=== PATIENT | female | born 1980 | race Caucasian/White ===

== ENCOUNTER 2019-01-26 05:05 | Inpatient (IN) | payer BC ==
[~2019-01-26] VITALS: Ht 165.1 cm; Wt 73.7 kg
[2019-01-26] MEDS ORDERED: SODIUM CHLORIDE 0.9% 1,000 ML IV ONE (06:59)
[2019-01-26] MEDS ORDERED: ONDANSETRON HCL 4 MG/2 ML VIAL IV ONE (07:00)
[2019-01-26] MEDS ORDERED: MORPHINE SULFATE 4 MG/ML SYR/VIAL IV ONE ×2 (07:00→09:45)
[2019-01-26] MEDS ORDERED: LIDOCAINE 1% (LOCAL ANESTH.) PF 5ml SDV ID ONE (07:30)
[2019-01-26] MEDS ORDERED: InsuLIN REG 1unit/0.01ml Soln (100units/ml) IV ONE ×2 (07:30→13:45)
[2019-01-26 07:31] LABS: Basophils # (auto) 0 uL; Basophils % (auto) 0.4 % (0.0-2.0); Eosinophils # (auto) 0.2 uL; Eosinophils % (auto) 1.8 % (0.0-7.0); Hematocrit 32.4 % (36.0-46.0); Hemoglobin 10.5 g/dL (12.2-16.2); Lymphocytes # (auto) 1.3 uL; Lymphocytes % (auto) 12.1 % (10.0-50.0); Mean Corpuscular Hemoglobin 28.1 pg (28.0-32.0); Mean Corpuscular Hgb Conc. 32.3 g/dL (32.0-36.0); Mean Corpuscular Volume 87.1 fL (80.0-100.0); Monocytes # (auto) 0.7 uL; Monocytes % (auto) 6.8 % (0.0-12.0); Neutrophils # (auto) 8.3 uL; Neutrophils % (auto) 78.9 % (37.0-80.0); Platelet Count (auto) 334 10^3/uL (140-450); Red Blood Cells 3.72 10^6/uL (4.0-5.20); Red Cell Distribution Width 14.3 % (11.8-14.3); White Blood Cell 10.5 10^3/uL (4.4-10.8)
[2019-01-26 07:49] LABS: Potassium 4.4 mmol/L (3.5-5.1)
[2019-01-26 07:53] LABS: Albumin 3.1 g/dL (3.4-5.0); BUN/Creatinine Ratio 16.7; INR 0.87 (0.9-1.15); Magnesium 2.2 mg/dL (1.6-2.6); Partial Thromboplastin Time 27.3 sec (23.78-33.04); Prothrombin Time 9.4 sec (9.27-12.13)
[2019-01-26 08:07] LABS: Bilirubin, Total 0.3 mg/dL (0.2-1.0); Total Protein 7.6 g/dL (6.4-8.2)
[2019-01-26] MEDS ORDERED: LEVOFLOXACIN 500MG 100 ML IV ONE (09:30)
[2019-01-26] MEDS ORDERED: MORPHINE SULF INJ 2 MG/ML SYRINGE 1ML IV PRN (09:30)
[2019-01-26] MEDS ORDERED: DEXTROSE (50%) 50ML SYRG IV PRN ×2 (09:30→13:45)
[2019-01-26] MEDS ORDERED: TEMAZEPAM 15 MG CAP PO PRN (09:30)
[2019-01-26] MEDS ORDERED: traMADol HCL 50 MG TAB PO PRN (09:30)
[2019-01-26] MEDS ORDERED: NITROGLYCERIN 0.4 MG SL TAB SL PRN (09:30)
[2019-01-26] MEDS ORDERED: ACETAMINOPHEN 500 MG TAB PO PRN (09:30)
[2019-01-26] MEDS ORDERED: KETOROLAC TROMETH 30 MG/ML 1ML VIAL IV PRN (09:30)
[2019-01-26 09:54] LABS: Amylase 35 U/L (25-115); Lipase 256 U/L (73-393)
[2019-01-26] MEDS: FAMOTIDINE 20 MG TAB PO SCH ×2 (09:56→22:25)
[2019-01-26] MEDS: PROMETHAZINE HCL 25 MG/ML 1ML IV PRN ×2 (09:56→14:26)
[2019-01-26] MEDS ORDERED: LEVOFLOXACIN 500MG 100 ML IV SCH (10:00)
[2019-01-26] MEDS: INSULIN LANTUS (GLARGINE) 1 /0.01ml (100units/ml) SC SCH ×2 (10:07→22:25)
--- NOTE | 2019-01-26 10:40 | NUR ---
Telemetry admit from ER ANDREW BROWN admitted to Telemetry unit after SBAR received. Patient oriented to Haley Traore, primary RN, unit, room, bed, and unit policies regarding patient care and visiting hours. Patient now on continuous telemetry monitoring, tele box # 31 and telemetry reading on arrival to unit is . Patient placed on bedside oxygen, weighed by bedscale and encouraged to call if they need something. All questions and concerns addressed, patient verbalized understanding. Note:
--- NOTE | 2019-01-26 11:10 | NUR ---
PAGED DR. SORIA
--- NOTE | 2019-01-26 11:13 | NUR ---
DR. SORIA RETURNED CALL ORDERS GIVEN TORB AND VERIFIED
[2019-01-26] MEDS: SOD CHL 0.9%/ KCL 20MEQ 1,000 ML IV SCH (11:53)
[2019-01-26] MEDS ORDERED: ACCU-CHEK COMFORT CURVE STRIP VI SCH (12:00)
[2019-01-26] MEDS ORDERED: InsuLIN REG 1unit/0.01ml Soln (100units/ml) SC SCH (12:00)
[2019-01-26 12:07] VITALS: BP 119/78
--- NOTE | 2019-01-26 12:08 | NUR ---
paged hospitalist for blood glucose of 540.
--- NOTE | 2019-01-26 12:38 | NUR ---
NOTIFIED DR. MANZANARES OF PATIENTS BLOOD SUGAR RESULTS.
--- NOTE | 2019-01-26 13:32 | NUR ---
DR. SORIA NOTIFIED OF BLOOD GLUCOSE OF 540 ORDERS GIVEN TORB AND VERIFIED.
[2019-01-26] MEDS ORDERED: InsuLIN REG 1unit/0.01ml Soln (100units/ml) SC ONE (13:45)
[2019-01-26] MEDS: metroNIDAZOLE 500MG/100ML 100 ML IV SCH ×2 (14:25→22:25)
[2019-01-26] MEDS ORDERED: INSLANTI SC (14:51)
[2019-01-26] MEDS ORDERED: PERCOT PO (14:54)
[2019-01-26] MEDS ORDERED: INSLISPI SC (14:54)
[2019-01-26 16:46] VITALS: BP 114/70
[2019-01-26] MEDS: ACCU-CHEK COMFORT CURVE STRIP VI SCH ×2 (17:08→20:40)
[2019-01-26] MEDS: InsuLIN REG 1unit/0.01ml Soln (100units/ml) SC SCH ×2 (17:09→20:40)
--- NOTE | 2019-01-26 20:00 | NUR ---
Opening Shift Note: Patient, awake and alert. No S/S of distress or SOB. Pt denies any pain. Bed in a low and locked position with side rails up x2. Instructed on POC and to call for assist PRN, will continue to monitor.
[2019-01-26 22:00] VITALS: BP 137/83
[2019-01-27] MEDS: ACCU-CHEK COMFORT CURVE STRIP VI SCH ×2 (00:28→03:56)
[2019-01-27] MEDS: InsuLIN REG 1unit/0.01ml Soln (100units/ml) SC SCH ×2 (00:28→03:56)
[2019-01-27] MEDS: SOD CHL 0.9%/ KCL 20MEQ 1,000 ML IV SCH (02:57)
[2019-01-27 04:54] VITALS: BP 115/69
[2019-01-27] MEDS: metroNIDAZOLE 500MG/100ML 100 ML IV SCH (06:11)
--- NOTE | 2019-01-27 06:20 | NUR ---
Patient expressed to me that she wishes to go home at this time due to finding out that her grandmother who was on hospice has .
--- NOTE | 2019-01-27 06:22 | NUR ---
[facility] hospitalist Ana finn Notified my charge nurse of situation. Addendum: 01/27/19 at 0640 by RHINA COLLINS RN RN Incident report was completed as well.
--- NOTE | 2019-01-27 06:44 | NUR ---
Patient left AMA with all her belongings. Tele box was taken off, IV removed and spoke with Dr. Jarrett and notified of AMA.
[2019-01-27 07:03] LABS: Potassium 4.2 mmol/L (3.5-5.1)
[2019-01-27 07:12] LABS: Albumin 2.8 g/dL (3.4-5.0); BUN/Creatinine Ratio 15.2; Bilirubin, Total 0.2 mg/dL (0.2-1.0); Calcium 8.4 mg/dL (8.5-10.1); Total Protein 6.8 g/dL (6.4-8.2)
== END 2019-01-27 06:45 | disposition left against medical advice (07) | DRG 639 ==
LOC: ER 05:05 → EDBD 05:05 → TELE 09:22 → TELE-WESTW 11:52
PROVIDERS: ADMIT Internal Medicine; ATTEND Internal Medicine
PROC: 0U9LXZZ Drainage of Vestibular Gland, External Approach (ICD-10-PCS; principal; 2019-01-26)
DX: E10.65 Type 1 diabetes mellitus with hyperglycemia (principal); N75.0 Cyst of Bartholin's gland; D63.8 Anemia in other chronic diseases classified elsewhere; Z53.21 Procedure and treatment not carried out due to patient leaving prior to being seen by health care provider; F12.90 Cannabis use, unspecified, uncomplicated; Z80.3 Family history of malignant neoplasm of breast; Z83.3 Family history of diabetes mellitus; Z85.118 Personal history of other malignant neoplasm of bronchus and lung; Z90.710 Acquired absence of both cervix and uterus; Z88.2 Allergy status to sulfonamides
CPT/HCPCS: 36415; 56405; 80053; 82150; 82962; 83036; 83690; 83735; 85025; 85610; 85730; 94761; 96361; 96365; 96375; G0378; J1815; J1885; J1956; J2405; J3490